=== PATIENT | female | born 1990 | race African-American/Black ===

== ENCOUNTER 2017-04-23 01:38 | Emergency (ER) | payer OTHER | END 2017-04-23 02:19 | disposition home or self-care (01) | LOC: ERS 01:38 | DX: K02.9 Dental caries, unspecified (principal); J45.909 Unspecified asthma, uncomplicated; Z87.891 Personal history of nicotine dependence | CPT/HCPCS: 99282 ==

== ENCOUNTER 2019-08-06 09:10 | Emergency (ER) | payer MEDICAID, OTHER, SELFPAY ==
[2019-08-06] MEDS ORDERED: Lidocaine 1% w/Epinephrine 1:100K 20 ML VIAL ONE (11:36)
[2019-08-06] MEDS ORDERED: Bacitracin 1 PK ONE (12:17)
[2019-08-06] MEDS ORDERED: Adacel (T-DAP) 0.5 ML SYRINGE ONE (12:48)
== END 2019-08-06 12:58 | disposition home or self-care (01) ==
LOC: ERS 09:10
DX: N76.4 Abscess of vulva (principal); J45.909 Unspecified asthma, uncomplicated; Z87.891 Personal history of nicotine dependence
CPT/HCPCS: 56405; 90471; 90715; 94760

== ENCOUNTER 2019-08-10 18:10 | Emergency (ER) | payer SELFPAY | END 2019-08-10 18:45 | disposition home or self-care (01) | LOC: ERS 18:10 | DX: Z48.817 Encounter for surgical aftercare following surgery on the skin and subcutaneous tissue (principal); J45.909 Unspecified asthma, uncomplicated; Z87.891 Personal history of nicotine dependence | CPT/HCPCS: 99282 ==

== ENCOUNTER 2019-10-15 15:19 | Emergency (ER) | payer SELFPAY ==
[2019-10-15 15:49] LABS: #Basophils 0.1 thou/uL (0.0-0.2); #Eosinphils 0.1 thou/uL (0.0-0.7); #Lymphocytes 2.6 thou/uL (1.20-3.40); #Monocytes 0.4 thou/uL (0.11-0.59); #Neutrophils 2.4 thou/uL (1.40-6.50); %Eosinophils 1.1 % (0.0-10.0); %Monocytes 7.7 % (0.0-10.0); %Neutrophils 43.2 % (42.0-75.0); Hemoglobin 12.5 g/dL (12.0-16.0); Mean Corpuscular Volume 94.1 fL (78.0-98.0); Mean Platelet Volume 8.4 fL (7.4-10.4); Platelet Count 276 thou/uL (130-400); RBC Distribution Width 11.4 % (11.5-14.5); Red Blood Cell (RBC) Count 3.92 mill/uL (4.20-5.40); White Blood Cell (WBC) Count 5.5 thou/uL (4.8-10.8)
--- NOTE | 2019-10-15 15:57 | RAD ---
CHEST 1 VIEW: HISTORY: Chest pain, cough, and sore throat for 1-1/2 weeks. FINDINGS: Heart size is normal. The lungs are clear. No confluent pneumonia, overt edema, or pleural effusion . IMPRESSION: No acute intrathoracic disease. POS: RRE
[2019-10-15 16:11] LABS: ALT (SGPT) 13 U/L (8-55); AST (SGOT) 13 U/L (5-34); Albumin 4.6 g/dL (3.5-5.0); Alkaline Phosphatase 51 U/L (40-110); Anion Gap 15 mmol/L (10-20); BUN (Urea Nitrogen) 10 mg/dL (7.0-18.7); Bilirubin, Total 0.2 mg/dL (0.2-1.2); Calc. Creatinine Clearance 0 mL/min (70-130); Calcium 9.8 mg/dL (7.8-10.44); Carbon Dioxide 21 mmol/L (22-29); Chloride 106 mmol/L (98-107); Estimated GFR-MDRD Greater than 90; Globulin 3.3 g/dL (2.4-3.5); Glucose 101 mg/dL (70-105); Potassium 3.8 mmol/L (3.5-5.1); Protein, Total 7.9 g/dL (6.0-8.3); Sodium 138 mmol/L (136-145)
[2019-10-15 16:12] LABS: BHCG - Serum Negative (NEGATIVE); Pregs Control Background? CLEAR/WHITE (CLR/WHITE); Pregs Control Bar Appear? YES (CONTROL BAR)
[2019-10-15] MEDS ORDERED: Ibuprofen 800 MG TAB ONE (16:13)
== END 2019-10-15 18:35 | disposition home or self-care (01) ==
LOC: ERS 15:19
DX: R07.89 Other chest pain (principal); J45.909 Unspecified asthma, uncomplicated; Z87.891 Personal history of nicotine dependence
CPT/HCPCS: 36415; 71045; 80053; 84703; 85025; 85379; 93005